=== PATIENT | male | born 1985 ===

== ENCOUNTER 2018-09-27 15:35 | Emergency (ER) | payer SELFPAY ==
[2018-09-27 15:45] VITALS: O2SAT 99
--- NOTE | 2018-09-27 16:01 | ED PDOC ---
Arrival/HPI - General Chief Complaint: Fever Time Seen by Provider: 09/27/18 15:40 Historian: Patient - History of Present Illness Narrative History of Present Illness (Text): 09/27/18 15:57 A 33 year old male, whose past medical history includes asthma, presents to the emergency department complaining of headache, fever, cough, and congestion for the past few days. Patient reports 4 days ago, began experiencing symptoms slightly; 2 days ago became worse, and yesterday all the symptoms became unbearable. Patient denies any other complaints at this time. No PMD Time/Duration: < week (few days) Past Medical History - Provider Review Nursing Documentation Reviewed: Yes - Infectious Disease Hx of Infectious Diseases: None - Pulmonary Hx Asthma: Yes - Psychiatric Hx Substance Use: No - Anesthesia Hx Anesthesia: No Hx Anesthesia Reactions: No Hx Malignant Hyperthermia: No Family/Social History - Physician Review Nursing Documentation Reviewed: Yes Family/Social History: No Known Family HX Smoking Status: Never Smoked Hx Alcohol Use: No Hx Substance Use: No Allergies/Home Meds Allergies/Adverse Reactions: Allergies shrimp Adverse Reaction (Verified 09/27/18 15:45) CONGESTION Home Medications: Home Meds Medication Instructions Recorded Confirmed Albuterol HFA [Ventolin HFA 90 1 puff INH BID 09/27/18 09/27/18 mcg/actuation (8 g)] Review of Systems - Physician Review All systems were reviewed & negative as marked: Yes - Review of Systems Constitutional: Fevers ENT: Sinus Congestion Respiratory: Cough Neurological: Headache Physical Exam Vital Signs Reviewed: Yes Vital Signs Temp Pulse Resp BP Pulse Ox 09/27/18 15:41 98.9 F 114 H 19 132/82 99 Temperature: Afebrile Blood Pressure: Normal Pulse: Regular Respiratory Rate: Normal Appearance: Positive for: Well-Appearing, Non-Toxic, Comfortable Pain Distress: None Mental Status: Positive for: Alert and Oriented X 3 - Systems Exam Head: Present: Atraumatic, Normocephalic Pupils: Present: PERRL Extroacular Muscles: Present: EOMI Conjunctiva: Present: Normal Mouth: Present: Moist Mucous Membranes Pharnyx: Present: ERYTHEMA (mild) Neck: Present: Normal Range of Motion Respiratory/Chest: Present: Clear to Auscultation, Good Air Exchange. No: Respiratory Distress, Accessory Muscle Use Cardiovascular: Present: Regular Rate and Rhythm, Normal S1, S2. No: Murmurs Abdomen: No: Tenderness, Distention, Peritoneal Signs Back: Present: Normal Inspection Upper Extremity: Present: Normal Inspection. No: Cyanosis, Edema Lower Extremity: Present: Normal Inspection. No: Edema Neurological: Present: GCS=15, CN II-XII Intact, Speech Normal Skin: Present: Warm, Dry, Normal Color. No: Rashes Psychiatric: Present: Alert, Oriented x 3, Normal Insight, Normal Concentration Medical Decision Making ED Course and Treatment: 09/27/18 16:01 Impression: 33 year old male with headache, fever, cough, and congestion. Physical exam shows mild pharynx erythema. Plan: -- Rapid Strep Throat Test -- Influenza A/B Test -- Reassess and disposition Progress Notes: 09/27/18 18:12 flu pos, pt refuses cxr, lungs cta. speaking full sentences in nad - Scribe Statement The provider has reviewed the documentation as recorded by the Diane Navarrete Provider Scribe Attestation: All medical record entries made by the Arabellaibjaci were at my direction and personally dictated by me. I have reviewed the chart and agree that the record accurately reflects my personal performance of the history, physical exam, medical decision making, and the department course for this patient. I have also personally directed, reviewed, and agree with the discharge instructions and disposition. Disposition/Present on Arrival - Present on Arrival Any Indicators Present on Arrival: No History of DVT/PE: No History of Uncontrolled Diabetes: No Urinary Catheter: No History of Decub. Ulcer: No History Surgical Site Infection Following: None - Disposition Have Diagnosis and Disposition been Completed?: Yes Diagnosis: Influenza Disposition: HOME/ ROUTINE Disposition Time: 16:00 Condition: STABLE Discharge Instructions (ExitCare): Flu, Adult (DC) Additional Instructions: follow up with your doctor/clinic. return to er with worsening. Prescriptions: Oseltamivir Phosphate [Tamiflu] 75 mg PO BID #10 capsule Referrals: [facility] [Outside] - Follow up with primary [facility] [place] [Outside] - Follow up with primary Forms: [employer] (Mongolian), WORK NOTE
[2018-09-27 16:38] LABS: INFLUENZA A B POS FOR INFLUENZA B (NEGATIVE)
[2018-09-27 16:46] VITALS: BP 135/73; PULSE 88; RESP 18; TEMP 98.6
== END 2018-09-27 17:13 | disposition home or self-care (01) ==
LOC: ED 15:35 → MERGE 15:35 → ED 17:13
DX: J11.1 Influenza due to unidentified influenza virus with other respiratory manifestations (principal)